=== PATIENT | female | born 1975 | race Caucasian/White ===

== ENCOUNTER 2023-08-14 17:44 | Emergency (ER) | payer OTHER, MEDICAID ==
[~2023-08-14] VITALS: Ht 157.5 cm; Wt 63.5 kg
[~2023-08-14 17:44] MED LIST: HYDR-3917 PO
[2023-08-14 17:55] VITALS: BP_SYST 163; PULSE 94; RESP 18; TEMP 98.1; O2SAT 99
[2023-08-14] MEDS: IBUPROFEN 600 MG TABLET PO ONE (19:25)
[2023-08-14] MEDS ORDERED: DICL20GE TP (21:10)
[2023-08-14] MEDS ORDERED: IBUP-1969 PO (21:10)
[2023-08-14 21:18] VITALS: BP_SYST 136; PULSE 83; RESP 20; TEMP 97.9; O2SAT 98
== END 2023-08-14 21:18 | disposition home or self-care (01) ==
LOC: SED 17:44
DX: S39.012A Strain of muscle, fascia and tendon of lower back, initial encounter (principal); Z88.0 Allergy status to penicillin; Z79.899 Other long term (current) drug therapy; V89.2XXA Person injured in unspecified motor-vehicle accident, traffic, initial encounter; Y93.89 Activity, other specified; Y92.89 Other specified places as the place of occurrence of the external cause; Y99.8 Other external cause status
CPT/HCPCS: 72072; 72100; 99284